=== PATIENT | male | born 1995 | race Caucasian/White ===

== ENCOUNTER 2021-11-22 20:54 | Emergency (ER) | payer OTHER ==
[~2021-11-22] VITALS: Ht 170.2 cm; Wt 70.3 kg
--- NOTE | 2021-11-22 22:35 | NUR ---
Patient walked into ER with steady gait A/Ox3 for c/o right shoulder pain. Patient states he was playing soccer and was trip and fell on right shoulder and grass field 3hrs [employer].
--- NOTE | 2021-11-22 23:21 | NUR ---
Dr. [place] on bedside for MSE.
[2021-11-22] MEDS ORDERED: KETOROLAC TROMETHAMINE 60 MG INJ IM ONE ×2 (23:36→23:45)
[2021-11-23] MEDS ORDERED: IBUP-1958 PO (00:32)
--- NOTE | 2021-11-23 00:34 | NUR ---
Patient discharged to home in stable condition. Written and verbal after care instructions given. Patient verbalizes understanding of instructions. Stressed follow up or return to ER for worsening s/s. Patient ambulated fr the ER with steady gait. All belongings with patient.
[2021-11-23 00:38] VITALS: BP 136/83
== END 2021-11-23 00:34 | disposition home or self-care (01) ==
LOC: ER 20:54
DX: S43.401A Unspecified sprain of right shoulder joint, initial encounter (principal); W03.XXXA Other fall on same level due to collision with another person, initial encounter; Y93.66 Activity, soccer; Y92.322 Soccer field as the place of occurrence of the external cause
CPT/HCPCS: 99283; 73030; 96372; J1885; A4663